=== PATIENT | male | born 1975 | race Caucasian/White ===

== ENCOUNTER 2021-02-25 12:03 | Inpatient (IN) | payer OTHER ==
[2021-02-25 12:43] VITALS: BMI 29.2
[2021-02-25] MEDS ORDERED: NICOTINE 10 MG CARTRIDGE (INHALER) IH PRN (13:27)
[2021-02-25] MEDS ORDERED: MENTHOL/PHENOL 1 EACH UD MM PRN (13:27)
[2021-02-25] MEDS ORDERED: MAGNESIUM HYDROX 2400MG/30ML ORAL SUSPENSION 30 ML CUP PO PRN (13:27)
[2021-02-25] MEDS ORDERED: BISMUTH SUBSALICYLATE 524 MG/30 ML PO PRN (13:27)
[2021-02-25] MEDS ORDERED: MAG HYDROX/AL HYDROX/SIMETH 30 ML UNIT-DOSE CUP PO PRN (13:27)
[2021-02-25] MEDS ORDERED: METHOCARBAMOL 500 MG TABLET PO PRN (13:27)
[2021-02-25] MEDS ORDERED: ACETAMINOPHEN 325 MG TABLET (FP) PO PRN ×2 (13:27)
[2021-02-25] MEDS ORDERED: IBUPROFEN 400 MG TABLET (FP) PO PRN (13:27)
[2021-02-25] MEDS ORDERED: MAGNESIUM CITRATE 300 ML BOTTLE PO PRN (13:27)
[2021-02-25] MEDS ORDERED: ONDANSETRON *ODT* 4 MG TABLET SL PRN (13:27)
[2021-02-25] MEDS: hydrOXYzine PAMOATE 25 MG CAPSULE (FP) PO SCH ×3 (15:03→22:34)
[2021-02-25] MEDS: PRENATAL VITAMINS W/ FOLIC ACID TABLET (FP) PO SCH (15:04)
[2021-02-25] MEDS ORDERED: MELATONIN 5 MG TABLETS PO SCH (22:00)
[2021-02-25] MEDS ORDERED: THIAMINE HCL 100 MG TABLET (FP) PO SCH (22:00)
[2021-02-26] MEDS: hydrOXYzine PAMOATE 25 MG CAPSULE (FP) PO SCH ×2 (07:23→10:31)
[2021-02-26 09:25] VITALS: TEMP 96.9
[2021-02-26] MEDS ORDERED: hydrOXYzine PAMOATE 25 MG CAPSULE (FP) PO PRN (10:22)
[2021-02-26] MEDS: PRENATAL VITAMINS W/ FOLIC ACID TABLET (FP) PO SCH (10:30)
[2021-02-26 12:14] LABS: HEMATOCRIT 40.6 % (35.4-49); HEMOGLOBIN 13.9 GM/dL (11.7-16.9); MCH 33.8 pg (25.7-33.7); MCHC 34.1 g/dl (32.0-35.9); MEAN PLT VOLUME 8.3 fl (7.5-11.1); PLATELET COUNT 258 10^3/uL (134-434); RDW 13.3 % (11.9-15.9); WHITE BLOOD COUNT 6.6 K/mm3 (4.0-10.0)
[2021-02-26 12:21] LABS: CALCIUM 9.1 mg/dL (8.5-10.1)
[2021-02-26 12:22] LABS: ALBUMIN 3.2 g/dl (3.4-5.0); BLOOD UREA NITROGEN 23.9 mg/dL (7-18)
[2021-02-26 12:26] LABS: BILIRUBIN,TOTAL 0.4 mg/dL (0.2-1); TOT PROT 6.9 g/dl (6.4-8.2)
[2021-02-26 13:30] VITALS: BP 122/70; PULSE 79
[2021-02-26 16:00] LABS: HIV INTERPRETATION NEGATIVE (NEGATIVE)
== END 2021-02-26 14:02 | disposition other institution (70) | DRG 774 ==
LOC: YASAS 12:03 → UNDOADMIN 13:08 → Y3N 13:08 → UNDODISIN 02-26 14:02
PROVIDERS: ADMIT Allergy & Immunology; ATTEND Allergy & Immunology
PROC: HZ2ZZZZ Detoxification Services for Substance Abuse Treatment (ICD-10-PCS; principal; 2021-02-25)
DX: F10.230 Alcohol dependence with withdrawal, uncomplicated (principal); F14.20 Cocaine dependence, uncomplicated; F17.210 Nicotine dependence, cigarettes, uncomplicated; Z59.01 Sheltered homelessness; Z56.0 Unemployment, unspecified
CPT/HCPCS: 36415; 80053; 85027; 86780; 87389; C9803; U0003; U0005

== ENCOUNTER 2021-02-26 14:37 | Inpatient (IN) | payer OTHER ==
[2021-02-26] MEDS ORDERED: LOPERAMIDE HCL 2 MG CAPSULE PO PRN (15:01)
[2021-02-26] MEDS ORDERED: MAGNESIUM CITRATE 300 ML BOTTLE PO PRN (15:01)
[2021-02-26] MEDS ORDERED: P-EPHED 60MG/TRIPROLIDI 2.5MG TABLET PO PRN (15:01)
[2021-02-26] MEDS ORDERED: MENTHOL/PHENOL 1 EACH UD MM PRN (15:01)
[2021-02-26] MEDS ORDERED: guaiFENesin 200 MG/10 ML 10 ML UNIT-DOSE CUPS PO PRN (15:01)
[2021-02-26] MEDS ORDERED: MAGNESIUM HYDROX 2400MG/30ML ORAL SUSPENSION 30 ML CUP PO PRN (15:01)
[2021-02-26] MEDS ORDERED: MAG HYDROX/AL HYDROX/SIMETH 30 ML UNIT-DOSE CUP PO PRN (15:01)
[2021-02-26] MEDS ORDERED: IBUPROFEN 400 MG TABLET (FP) PO PRN (15:01)
[2021-02-26] MEDS: THIAMINE HCL 100 MG TABLET (FP) PO SCH (21:26)
[2021-02-26] MEDS: MELATONIN 5 MG TABLETS PO SCH (21:26)
[2021-02-27] MEDS: PRENATAL VITAMINS W/ FOLIC ACID TABLET (FP) PO SCH (10:11)
[2021-02-27] MEDS: THIAMINE HCL 100 MG TABLET (FP) PO SCH (21:18)
[2021-02-27] MEDS: MELATONIN 5 MG TABLETS PO SCH (21:18)
[2021-02-28] MEDS: PRENATAL VITAMINS W/ FOLIC ACID TABLET (FP) PO SCH (09:32)
[2021-02-28] MEDS: hydrOXYzine PAMOATE 25 MG CAPSULE (FP) PO PRN ×2 (09:32→21:27)
[2021-02-28] MEDS: THIAMINE HCL 100 MG TABLET (FP) PO SCH (21:27)
[2021-02-28] MEDS: MELATONIN 5 MG TABLETS PO SCH (21:27)
[2021-03-01] MEDS: PRENATAL VITAMINS W/ FOLIC ACID TABLET (FP) PO SCH (10:02)
[2021-03-01] MEDS: hydrOXYzine PAMOATE 25 MG CAPSULE (FP) PO PRN (21:09)
[2021-03-01] MEDS: THIAMINE HCL 100 MG TABLET (FP) PO SCH (21:09)
[2021-03-01] MEDS: MELATONIN 5 MG TABLETS PO SCH (21:09)
[2021-03-02] MEDS: PRENATAL VITAMINS W/ FOLIC ACID TABLET (FP) PO SCH (10:10)
[2021-03-02] MEDS: hydrOXYzine PAMOATE 25 MG CAPSULE (FP) PO PRN (19:49)
[2021-03-02] MEDS: SUVOREXANT 10 MG TABLET PO PRN (21:06)
[2021-03-02] MEDS: THIAMINE HCL 100 MG TABLET (FP) PO SCH (21:06)
[2021-03-03] MEDS: PRENATAL VITAMINS W/ FOLIC ACID TABLET (FP) PO SCH (10:03)
[2021-03-03] MEDS: hydrOXYzine PAMOATE 25 MG CAPSULE (FP) PO PRN (18:03)
[2021-03-03] MEDS: SUVOREXANT 10 MG TABLET PO PRN (21:10)
[2021-03-03] MEDS: THIAMINE HCL 100 MG TABLET (FP) PO SCH (21:10)
[2021-03-04] MEDS: PRENATAL VITAMINS W/ FOLIC ACID TABLET (FP) PO SCH (10:08)
[2021-03-04] MEDS: hydrOXYzine PAMOATE 25 MG CAPSULE (FP) PO PRN ×2 (10:08→21:36)
[2021-03-04] MEDS: THIAMINE HCL 100 MG TABLET (FP) PO SCH (21:36)
[2021-03-04] MEDS: SUVOREXANT 10 MG TABLET PO PRN (21:36)
[2021-03-05] MEDS: PRENATAL VITAMINS W/ FOLIC ACID TABLET (FP) PO SCH (10:32)
[2021-03-05] MEDS: hydrOXYzine PAMOATE 25 MG CAPSULE (FP) PO PRN ×2 (13:57→21:04)
[2021-03-05] MEDS: THIAMINE HCL 100 MG TABLET (FP) PO SCH (21:04)
[2021-03-05] MEDS: SUVOREXANT 10 MG TABLET PO PRN (21:05)
[2021-03-05] MEDS ORDERED: SUVOREXANT 10 MG TABLET PO PRN (22:00)
[2021-03-06] MEDS: PRENATAL VITAMINS W/ FOLIC ACID TABLET (FP) PO SCH (10:11)
[2021-03-06] MEDS: hydrOXYzine PAMOATE 25 MG CAPSULE (FP) PO PRN (18:41)
[2021-03-06] MEDS: SUVOREXANT 10 MG TABLET PO PRN (21:50)
[2021-03-06] MEDS: THIAMINE HCL 100 MG TABLET (FP) PO SCH (21:50)
[2021-03-07] MEDS: hydrOXYzine PAMOATE 25 MG CAPSULE (FP) PO PRN ×3 (09:50→21:16)
[2021-03-07] MEDS: PRENATAL VITAMINS W/ FOLIC ACID TABLET (FP) PO SCH (09:50)
[2021-03-07] MEDS: ACETAMINOPHEN 325 MG TABLET (FP) PO PRN (19:27)
[2021-03-07] MEDS: THIAMINE HCL 100 MG TABLET (FP) PO SCH (21:15)
[2021-03-07] MEDS: SUVOREXANT 10 MG TABLET PO PRN (21:16)
[2021-03-08] MEDS: PRENATAL VITAMINS W/ FOLIC ACID TABLET (FP) PO SCH (09:58)
[2021-03-08] MEDS: hydrOXYzine PAMOATE 25 MG CAPSULE (FP) PO PRN ×2 (09:58→15:14)
[2021-03-08] MEDS: ACETAMINOPHEN 325 MG TABLET (FP) PO PRN (15:15)
[2021-03-08] MEDS: SUVOREXANT 10 MG TABLET PO PRN (21:34)
[2021-03-08] MEDS: THIAMINE HCL 100 MG TABLET (FP) PO SCH (21:34)
[2021-03-09] MEDS: hydrOXYzine PAMOATE 25 MG CAPSULE (FP) PO PRN ×2 (10:02→21:12)
[2021-03-09] MEDS: PRENATAL VITAMINS W/ FOLIC ACID TABLET (FP) PO SCH (10:02)
[2021-03-09] MEDS: SUVOREXANT 10 MG TABLET PO PRN (21:11)
[2021-03-09] MEDS: ACETAMINOPHEN 325 MG TABLET (FP) PO PRN (21:12)
[2021-03-09] MEDS: THIAMINE HCL 100 MG TABLET (FP) PO SCH (21:12)
[2021-03-10] MEDS: ACETAMINOPHEN 325 MG TABLET (FP) PO PRN ×2 (10:10→21:22)
[2021-03-10] MEDS: hydrOXYzine PAMOATE 25 MG CAPSULE (FP) PO PRN ×2 (10:10→18:41)
[2021-03-10] MEDS: PRENATAL VITAMINS W/ FOLIC ACID TABLET (FP) PO SCH (10:10)
[2021-03-10] MEDS: THIAMINE HCL 100 MG TABLET (FP) PO SCH (21:21)
[2021-03-10] MEDS: SUVOREXANT 10 MG TABLET PO PRN (21:22)
[2021-03-11 07:01] VITALS: BP 124/84; PULSE 55; TEMP 96.9
[2021-03-11] MEDS: PRENATAL VITAMINS W/ FOLIC ACID TABLET (FP) PO SCH (09:10)
== END 2021-03-11 09:57 | disposition home or self-care (01) | DRG 772 ==
LOC: YASAS 14:37 → Y3W 14:38
PROVIDERS: ADMIT Allergy & Immunology; ATTEND Allergy & Immunology
PROC: HZ42ZZZ Group Counseling for Substance Abuse Treatment, Cognitive-Behavioral (ICD-10-PCS; principal; 2021-02-26)
DX: F10.20 Alcohol dependence, uncomplicated (principal); F14.20 Cocaine dependence, uncomplicated; F17.210 Nicotine dependence, cigarettes, uncomplicated; F19.282 Other psychoactive substance dependence with psychoactive substance-induced sleep disorder; Z56.0 Unemployment, unspecified; Z59.00 Homelessness unspecified
CPT/HCPCS: C9803; U0003; U0005

== ENCOUNTER 2021-10-07 11:09 | Inpatient (IN) | payer OTHER ==
[2021-10-07 11:30] VITALS: BMI 27.3
[2021-10-07] MEDS ORDERED: MAGNESIUM HYDROX 2400MG/30ML ORAL SUSPENSION 30 ML CUP PO PRN (11:46)
[2021-10-07] MEDS ORDERED: MAG HYDROX/AL HYDROX/SIMETH 30 ML UNIT-DOSE CUP PO PRN (11:46)
[2021-10-07] MEDS ORDERED: DICYCLOMINE HCL 10 MG CAPSULE PO PRN (11:46)
[2021-10-07] MEDS ORDERED: BENZOCAINE/MENTHOL (CHLORASEPTIC ) LOZENGE MM PRN (11:46)
[2021-10-07] MEDS ORDERED: ACETAMINOPHEN 325 MG TABLET (FP) PO PRN ×2 (11:46)
[2021-10-07] MEDS ORDERED: chlordiazePOXIDE HCL 25 MG CAPSULE PO PRN (11:46)
[2021-10-07] MEDS ORDERED: ONDANSETRON *ODT* 4 MG TABLET SL PRN (11:46)
[2021-10-07] MEDS ORDERED: LOPERAMIDE HCL 2 MG CAPSULE PO PRN (11:46)
[2021-10-07] MEDS ORDERED: IBUPROFEN 600 MG TABLET (FP) PO PRN (11:46)
[2021-10-07] MEDS ORDERED: BISMUTH SUBSALICYLATE 262 MG/15 ML BTL PO PRN (11:46)
[2021-10-07] MEDS ORDERED: NICOTINE 10 MG CARTRIDGE (INHALER) IH PRN (11:46)
[2021-10-07] MEDS ORDERED: MAGNESIUM CITRATE 300 ML BOTTLE PO PRN (11:46)
[2021-10-07] MEDS: hydrOXYzine PAMOATE 25 MG CAPSULE (FP) PO SCH ×3 (12:45→22:04)
[2021-10-07] MEDS: NICOTINE 7 MG/24 HOURS TOPICAL PATCH TD SCH (12:48)
[2021-10-07] MEDS: chlordiazePOXIDE HCL 25 MG CAPSULE PO SCH ×2 (17:37→22:03)
[2021-10-07] MEDS: THIAMINE HCL 100 MG TABLET (FP) PO SCH (22:03)
[2021-10-07] MEDS: MELATONIN 5 MG TABLETS PO SCH (22:04)
[2021-10-08] MEDS: chlordiazePOXIDE HCL 25 MG CAPSULE PO SCH ×2 (05:24→10:37)
[2021-10-08] MEDS: hydrOXYzine PAMOATE 25 MG CAPSULE (FP) PO SCH ×5 (05:24→22:35)
[2021-10-08 10:14] LABS: HEMATOCRIT 41.7 % (35.4-49); HEMOGLOBIN 13.9 GM/dL (11.7-16.9); MCH 33.9 pg (25.7-33.7); MCHC 33.2 g/dl (32.0-35.9); MEAN CELL VOLUME 102.1 fl (80-96); MEAN PLT VOLUME 8.9 fl (7.5-11.1); PLATELET COUNT 248 10^3/uL (134-434); RBC 4.09 M/mm3 (4.00-5.60); WHITE BLOOD COUNT 5.5 K/mm3 (4.0-10.0)
[2021-10-08 10:28] LABS: CALCIUM 9.8 mg/dL (8.5-10.1)
[2021-10-08 10:29] LABS: ALBUMIN 4.1 g/dl (3.4-5.0); BLOOD UREA NITROGEN 16.1 mg/dL (7-18)
[2021-10-08 10:32] LABS: CREATININE 1.1 mg/dL (0.55-1.3)
[2021-10-08 10:34] LABS: BILIRUBIN,TOTAL 1.7 mg/dL (0.2-1)
[2021-10-08] MEDS: PRENATAL VITAMINS W/ FOLIC ACID TABLET (FP) PO SCH (10:37)
[2021-10-08] MEDS: NICOTINE 7 MG/24 HOURS TOPICAL PATCH TD SCH (10:39)
[2021-10-08] MEDS: chlordiazePOXIDE HCL 10 MG CAPSULE PO SCH ×2 (11:08→17:20)
[2021-10-08] MEDS: MELATONIN 5 MG TABLETS PO SCH (22:35)
[2021-10-08] MEDS: THIAMINE HCL 100 MG TABLET (FP) PO SCH (22:35)
[2021-10-09] MEDS: hydrOXYzine PAMOATE 25 MG CAPSULE (FP) PO SCH ×5 (05:46→22:23)
[2021-10-09] MEDS: chlordiazePOXIDE HCL 25 MG CAPSULE PO SCH ×4 (05:46→22:23)
[2021-10-09] MEDS: PRENATAL VITAMINS W/ FOLIC ACID TABLET (FP) PO SCH (10:29)
[2021-10-09] MEDS: METHOCARBAMOL 500 MG TABLET PO PRN ×2 (10:29→18:00)
[2021-10-09] MEDS: NICOTINE 7 MG/24 HOURS TOPICAL PATCH TD SCH (10:30)
[2021-10-09] MEDS: THIAMINE HCL 100 MG TABLET (FP) PO SCH (22:23)
[2021-10-09] MEDS: MELATONIN 5 MG TABLETS PO SCH (22:23)
[2021-10-10] MEDS ORDERED: chlordiazePOXIDE HCL 10 MG CAPSULE PO PRN
[2021-10-10] MEDS: hydrOXYzine PAMOATE 25 MG CAPSULE (FP) PO SCH ×5 (07:01→22:22)
[2021-10-10] MEDS: chlordiazePOXIDE HCL 10 MG CAPSULE PO SCH ×4 (07:02→22:22)
[2021-10-10] MEDS: PRENATAL VITAMINS W/ FOLIC ACID TABLET (FP) PO SCH (10:51)
[2021-10-10] MEDS: NICOTINE 7 MG/24 HOURS TOPICAL PATCH TD SCH (10:51)
[2021-10-10] MEDS: METHOCARBAMOL 500 MG TABLET PO PRN (10:54)
[2021-10-10] MEDS: MELATONIN 5 MG TABLETS PO SCH (22:21)
[2021-10-10] MEDS: THIAMINE HCL 100 MG TABLET (FP) PO SCH (22:22)
[2021-10-11] MEDS: chlordiazePOXIDE HCL 10 MG CAPSULE PO SCH ×2 (06:24→18:14)
[2021-10-11] MEDS: hydrOXYzine PAMOATE 25 MG CAPSULE (FP) PO SCH ×5 (06:25→22:29)
[2021-10-11] MEDS: PRENATAL VITAMINS W/ FOLIC ACID TABLET (FP) PO SCH (11:00)
[2021-10-11] MEDS: NICOTINE 7 MG/24 HOURS TOPICAL PATCH TD SCH (11:01)
[2021-10-11] MEDS: IBUPROFEN 400 MG TABLET (FP) PO PRN (18:16)
[2021-10-11] MEDS: THIAMINE HCL 100 MG TABLET (FP) PO SCH (22:29)
[2021-10-11] MEDS: MELATONIN 5 MG TABLETS PO SCH (22:29)
[2021-10-12] MEDS ORDERED: chlordiazePOXIDE HCL 10 MG CAPSULE PO ONE (05:00)
[2021-10-12] MEDS: IBUPROFEN 400 MG TABLET (FP) PO PRN ×2 (06:15→17:55)
[2021-10-12] MEDS: hydrOXYzine PAMOATE 25 MG CAPSULE (FP) PO SCH ×5 (06:15→22:06)
[2021-10-12] MEDS: PRENATAL VITAMINS W/ FOLIC ACID TABLET (FP) PO SCH (10:23)
[2021-10-12] MEDS: METHOCARBAMOL 500 MG TABLET PO PRN (10:25)
[2021-10-12] MEDS: NICOTINE 7 MG/24 HOURS TOPICAL PATCH TD SCH (10:25)
[2021-10-12] MEDS ORDERED: DOXYCYCLINE HYCLATE 100 MG TABLET PO ONE (11:15)
[2021-10-12] MEDS: BACITRACIN 0.9 GM PACKET TP SCH ×2 (11:40→22:06)
[2021-10-12] MEDS: DOXYCYCLINE HYCLATE 100 MG TABLET PO SCH (17:54)
[2021-10-12] MEDS: MELATONIN 5 MG TABLETS PO SCH (22:06)
[2021-10-12] MEDS: THIAMINE HCL 100 MG TABLET (FP) PO SCH (22:06)
[2021-10-13] MEDS: hydrOXYzine PAMOATE 25 MG CAPSULE (FP) PO SCH ×2 (05:59→10:37)
[2021-10-13 09:39] VITALS: BP 100/57; PULSE 65; TEMP 97.8
[2021-10-13] MEDS: PRENATAL VITAMINS W/ FOLIC ACID TABLET (FP) PO SCH (10:37)
[2021-10-13] MEDS: DOXYCYCLINE HYCLATE 100 MG TABLET PO SCH (10:37)
[2021-10-13] MEDS: NICOTINE 7 MG/24 HOURS TOPICAL PATCH TD SCH (10:37)
[2021-10-13] MEDS: BACITRACIN 0.9 GM PACKET TP SCH (10:37)
== END 2021-10-13 13:33 | disposition other institution (70) | DRG 774 ==
LOC: YASAS 11:09 → Y6N 12:17
PROVIDERS: ADMIT Allergy & Immunology; ATTEND Surgery
PROC: HZ2ZZZZ Detoxification Services for Substance Abuse Treatment (ICD-10-PCS; principal; 2021-10-07)
DX: F10.230 Alcohol dependence with withdrawal, uncomplicated (principal); F14.20 Cocaine dependence, uncomplicated; F17.210 Nicotine dependence, cigarettes, uncomplicated; F19.282 Other psychoactive substance dependence with psychoactive substance-induced sleep disorder; B99.9 Unspecified infectious disease; R36.9 Urethral discharge, unspecified; Z59.00 Homelessness unspecified
CPT/HCPCS: 36415; 80053; 85027; 86780; 87070; 87077; 87205; 87811; C9803-CS; U0003; U0005

== ENCOUNTER 2021-10-13 14:24 | Inpatient (IN) | payer OTHER ==
[~2021-10-13 14:24] MED LIST: ACETAMINOPHEN 325 MG TABLET (FP) PO PRN; IBUPROFEN 400 MG TABLET (FP) PO PRN; LOPERAMIDE HCL 2 MG CAPSULE PO PRN; MAG HYDROX/AL HYDROX/SIMETH 30 ML UNIT-DOSE CUP PO PRN; MAGNESIUM CITRATE 300 ML BOTTLE PO PRN; MAGNESIUM HYDROX 2400MG/30ML ORAL SUSPENSION 30 ML CUP PO PRN; MELATONIN 5 MG TABLETS PO SCH; NICOTINE 10 MG CARTRIDGE (INHALER) IH PRN; NICOTINE 7 MG/24 HOURS TOPICAL PATCH TD SCH; NICOTINE POLACRILEX 2 MG GUM BUC PRN; P-EPHED 60MG/TRIPROLIDI 2.5MG TABLET PO PRN; PRENATAL VITAMINS W/ FOLIC ACID TABLET (FP) PO SCH; THIAMINE HCL 100 MG TABLET (FP) PO SCH; guaiFENesin 200 MG/10 ML 10 ML UNIT-DOSE CUPS PO PRN; hydrOXYzine PAMOATE 25 MG CAPSULE (FP) PO PRN; valACYclovir HCL 500 MG TABLET (FP) PO ONE
[2021-10-13] MEDS: BACITRACIN 0.9 GM PACKET TP SCH ×3 (16:13→21:06)
[2021-10-13] MEDS: IBUPROFEN 400 MG TABLET (FP) PO PRN (16:16)
[2021-10-13] MEDS: DOXYCYCLINE HYCLATE 100 MG TABLET PO SCH ×2 (16:27→17:08)
[2021-10-13] MEDS: MELATONIN 5 MG TABLETS PO SCH (21:05)
[2021-10-13] MEDS: valACYclovir HCL 500 MG TABLET (FP) PO SCH (21:06)
[2021-10-13] MEDS: THIAMINE HCL 100 MG TABLET (FP) PO SCH (21:06)
[2021-10-14] MEDS: BACITRACIN 0.9 GM PACKET TP SCH ×2 (10:20→21:11)
[2021-10-14] MEDS: DOXYCYCLINE HYCLATE 100 MG TABLET PO SCH ×2 (10:21→18:22)
[2021-10-14] MEDS: valACYclovir HCL 500 MG TABLET (FP) PO SCH ×2 (10:21→21:12)
[2021-10-14] MEDS: PRENATAL VITAMINS W/ FOLIC ACID TABLET (FP) PO SCH (10:21)
[2021-10-14] MEDS: IBUPROFEN 400 MG TABLET (FP) PO PRN (10:22)
[2021-10-14] MEDS: NICOTINE 7 MG/24 HOURS TOPICAL PATCH TD SCH (10:23)
[2021-10-14] MEDS: MELATONIN 5 MG TABLETS PO SCH (21:11)
[2021-10-14] MEDS: THIAMINE HCL 100 MG TABLET (FP) PO SCH (21:11)
[2021-10-15] MEDS: MAGNESIUM HYDROX 2400MG/30ML ORAL SUSPENSION 30 ML CUP PO PRN (08:51)
[2021-10-15] MEDS: PRENATAL VITAMINS W/ FOLIC ACID TABLET (FP) PO SCH (10:34)
[2021-10-15] MEDS: valACYclovir HCL 500 MG TABLET (FP) PO SCH ×2 (10:34→21:25)
[2021-10-15] MEDS: DOXYCYCLINE HYCLATE 100 MG TABLET PO SCH ×3 (10:34→18:44)
[2021-10-15] MEDS: BACITRACIN 0.9 GM PACKET TP SCH ×4 (10:34→21:26)
[2021-10-15] MEDS: IBUPROFEN 400 MG TABLET (FP) PO PRN (10:35)
[2021-10-15] MEDS: NICOTINE 7 MG/24 HOURS TOPICAL PATCH TD SCH (11:20)
[2021-10-15] MEDS: MELATONIN 5 MG TABLETS PO SCH (21:25)
[2021-10-15] MEDS: hydrOXYzine PAMOATE 25 MG CAPSULE (FP) PO PRN (21:25)
[2021-10-15] MEDS: THIAMINE HCL 100 MG TABLET (FP) PO SCH (21:25)
[2021-10-16] MEDS: DOXYCYCLINE HYCLATE 100 MG TABLET PO SCH ×2 (10:38→19:00)
[2021-10-16] MEDS: PRENATAL VITAMINS W/ FOLIC ACID TABLET (FP) PO SCH (10:38)
[2021-10-16] MEDS: BACITRACIN 0.9 GM PACKET TP SCH ×2 (10:38→21:43)
[2021-10-16] MEDS: NICOTINE 7 MG/24 HOURS TOPICAL PATCH TD SCH (10:38)
[2021-10-16] MEDS: valACYclovir HCL 500 MG TABLET (FP) PO SCH ×2 (10:38→21:10)
[2021-10-16] MEDS: THIAMINE HCL 100 MG TABLET (FP) PO SCH (21:10)
[2021-10-16] MEDS: hydrOXYzine PAMOATE 25 MG CAPSULE (FP) PO PRN (21:10)
[2021-10-16] MEDS: MELATONIN 5 MG TABLETS PO SCH (21:10)
[2021-10-17] MEDS: DOXYCYCLINE HYCLATE 100 MG TABLET PO SCH ×2 (10:34→17:49)
[2021-10-17] MEDS: NICOTINE 7 MG/24 HOURS TOPICAL PATCH TD SCH (10:34)
[2021-10-17] MEDS: PRENATAL VITAMINS W/ FOLIC ACID TABLET (FP) PO SCH (10:34)
[2021-10-17] MEDS: BACITRACIN 0.9 GM PACKET TP SCH ×2 (10:34→21:07)
[2021-10-17] MEDS: valACYclovir HCL 500 MG TABLET (FP) PO SCH ×2 (10:35→21:08)
[2021-10-17] MEDS: MELATONIN 5 MG TABLETS PO SCH (21:08)
[2021-10-17] MEDS: THIAMINE HCL 100 MG TABLET (FP) PO SCH (21:08)
[2021-10-18] MEDS: NICOTINE 7 MG/24 HOURS TOPICAL PATCH TD SCH (10:23)
[2021-10-18] MEDS: valACYclovir HCL 500 MG TABLET (FP) PO SCH ×2 (10:23→21:02)
[2021-10-18] MEDS: BACITRACIN 0.9 GM PACKET TP SCH ×2 (10:23→21:02)
[2021-10-18] MEDS: DOXYCYCLINE HYCLATE 100 MG TABLET PO SCH ×2 (10:23→17:03)
[2021-10-18] MEDS: PRENATAL VITAMINS W/ FOLIC ACID TABLET (FP) PO SCH (10:23)
[2021-10-18] MEDS: MELATONIN 5 MG TABLETS PO SCH (21:02)
[2021-10-18] MEDS: hydrOXYzine PAMOATE 25 MG CAPSULE (FP) PO PRN (21:02)
[2021-10-18] MEDS: THIAMINE HCL 100 MG TABLET (FP) PO SCH (21:53)
[2021-10-19] MEDS: valACYclovir HCL 500 MG TABLET (FP) PO SCH ×2 (09:51→21:17)
[2021-10-19] MEDS: DOXYCYCLINE HYCLATE 100 MG TABLET PO SCH ×2 (09:51→17:09)
[2021-10-19] MEDS: NICOTINE 7 MG/24 HOURS TOPICAL PATCH TD SCH (09:52)
[2021-10-19] MEDS: BACITRACIN 0.9 GM PACKET TP SCH ×2 (09:52→21:17)
[2021-10-19] MEDS: PRENATAL VITAMINS W/ FOLIC ACID TABLET (FP) PO SCH (09:53)
[2021-10-19] MEDS: THIAMINE HCL 100 MG TABLET (FP) PO SCH (21:17)
[2021-10-19] MEDS: SUVOREXANT 10 MG TABLET PO PRN (21:17)
[2021-10-19] MEDS: MELATONIN 5 MG TABLETS PO SCH (21:17)
[2021-10-20] MEDS: valACYclovir HCL 500 MG TABLET (FP) PO SCH ×2 (10:06→21:12)
[2021-10-20] MEDS: DOXYCYCLINE HYCLATE 100 MG TABLET PO SCH (10:06)
[2021-10-20] MEDS: BACITRACIN 0.9 GM PACKET TP SCH ×2 (10:06→21:12)
[2021-10-20] MEDS: NICOTINE 7 MG/24 HOURS TOPICAL PATCH TD SCH (10:06)
[2021-10-20] MEDS: PRENATAL VITAMINS W/ FOLIC ACID TABLET (FP) PO SCH (10:07)
[2021-10-20] MEDS: IBUPROFEN 400 MG TABLET (FP) PO PRN (10:08)
[2021-10-20] MEDS: MELATONIN 5 MG TABLETS PO SCH (21:12)
[2021-10-20] MEDS: hydrOXYzine PAMOATE 25 MG CAPSULE (FP) PO PRN (21:12)
[2021-10-20] MEDS: SUVOREXANT 10 MG TABLET PO PRN (21:13)
[2021-10-20] MEDS: THIAMINE HCL 100 MG TABLET (FP) PO SCH (21:14)
[2021-10-21] MEDS: BACITRACIN 0.9 GM PACKET TP SCH ×2 (10:19→21:02)
[2021-10-21] MEDS: NICOTINE 7 MG/24 HOURS TOPICAL PATCH TD SCH (10:19)
[2021-10-21] MEDS: PRENATAL VITAMINS W/ FOLIC ACID TABLET (FP) PO SCH (10:19)
[2021-10-21] MEDS: valACYclovir HCL 500 MG TABLET (FP) PO SCH ×2 (10:20→21:02)
[2021-10-21 12:41] LABS: HIV INTERPRETATION NEGATIVE (NEGATIVE)
[2021-10-21] MEDS: IBUPROFEN 400 MG TABLET (FP) PO PRN (16:59)
[2021-10-21] MEDS: MELATONIN 5 MG TABLETS PO SCH (21:02)
[2021-10-21] MEDS: THIAMINE HCL 100 MG TABLET (FP) PO SCH (21:03)
[2021-10-21] MEDS: SUVOREXANT 10 MG TABLET PO PRN (21:03)
[2021-10-22] MEDS: BACITRACIN 0.9 GM PACKET TP SCH ×2 (10:07→21:24)
[2021-10-22] MEDS: PRENATAL VITAMINS W/ FOLIC ACID TABLET (FP) PO SCH (10:08)
[2021-10-22] MEDS: NICOTINE 7 MG/24 HOURS TOPICAL PATCH TD SCH (10:08)
[2021-10-22] MEDS: valACYclovir HCL 500 MG TABLET (FP) PO SCH ×2 (10:08→21:24)
[2021-10-22] MEDS: IBUPROFEN 400 MG TABLET (FP) PO PRN (13:21)
[2021-10-22] MEDS: MAGNESIUM HYDROX 2400MG/30ML ORAL SUSPENSION 30 ML CUP PO PRN (13:21)
[2021-10-22] MEDS: MELATONIN 5 MG TABLETS PO SCH (21:24)
[2021-10-22] MEDS: THIAMINE HCL 100 MG TABLET (FP) PO SCH (21:25)
[2021-10-22] MEDS: SUVOREXANT 10 MG TABLET PO PRN (21:26)
[2021-10-23] MEDS: BACITRACIN 0.9 GM PACKET TP SCH ×2 (09:25→21:32)
[2021-10-23] MEDS: valACYclovir HCL 500 MG TABLET (FP) PO SCH ×2 (09:25→21:32)
[2021-10-23] MEDS: NICOTINE 7 MG/24 HOURS TOPICAL PATCH TD SCH (09:25)
[2021-10-23] MEDS: PRENATAL VITAMINS W/ FOLIC ACID TABLET (FP) PO SCH (09:25)
[2021-10-23] MEDS: MAGNESIUM HYDROX 2400MG/30ML ORAL SUSPENSION 30 ML CUP PO PRN (16:57)
[2021-10-23] MEDS: MELATONIN 5 MG TABLETS PO SCH (21:32)
[2021-10-23] MEDS: THIAMINE HCL 100 MG TABLET (FP) PO SCH (21:33)
[2021-10-23] MEDS: SUVOREXANT 10 MG TABLET PO PRN (21:33)
[2021-10-24] MEDS: valACYclovir HCL 500 MG TABLET (FP) PO SCH ×2 (10:07→21:25)
[2021-10-24] MEDS: BACITRACIN 0.9 GM PACKET TP SCH ×2 (10:07→21:26)
[2021-10-24] MEDS: PRENATAL VITAMINS W/ FOLIC ACID TABLET (FP) PO SCH (10:07)
[2021-10-24] MEDS: NICOTINE 7 MG/24 HOURS TOPICAL PATCH TD SCH (10:08)
[2021-10-24] MEDS: SUVOREXANT 10 MG TABLET PO PRN (21:26)
[2021-10-24] MEDS: MELATONIN 5 MG TABLETS PO SCH (21:26)
[2021-10-24] MEDS: THIAMINE HCL 100 MG TABLET (FP) PO SCH (22:12)
[2021-10-25] MEDS: BACITRACIN 0.9 GM PACKET TP SCH ×2 (10:25→21:12)
[2021-10-25] MEDS: NICOTINE 7 MG/24 HOURS TOPICAL PATCH TD SCH (10:25)
[2021-10-25] MEDS: valACYclovir HCL 500 MG TABLET (FP) PO SCH ×2 (10:25→21:12)
[2021-10-25] MEDS: PRENATAL VITAMINS W/ FOLIC ACID TABLET (FP) PO SCH (10:25)
[2021-10-25] MEDS: MELATONIN 5 MG TABLETS PO SCH (21:12)
[2021-10-25] MEDS: SUVOREXANT 10 MG TABLET PO PRN (21:12)
[2021-10-25] MEDS: THIAMINE HCL 100 MG TABLET (FP) PO SCH (21:13)
[2021-10-26 07:05] VITALS: BP 131/83; PULSE 61; TEMP 98.4
[2021-10-26] MEDS: BACITRACIN 0.9 GM PACKET TP SCH (09:43)
[2021-10-26] MEDS: valACYclovir HCL 500 MG TABLET (FP) PO SCH (09:43)
[2021-10-26] MEDS: NICOTINE 7 MG/24 HOURS TOPICAL PATCH TD SCH (09:44)
[2021-10-26] MEDS: PRENATAL VITAMINS W/ FOLIC ACID TABLET (FP) PO SCH (09:44)
== END 2021-10-26 09:55 | disposition home or self-care (01) | DRG 772 ==
LOC: YASAS 14:24 → Y3W 14:32
PROVIDERS: ADMIT Allergy & Immunology; ATTEND Psychiatry & Neurology Psychiatry
PROC: HZ42ZZZ Group Counseling for Substance Abuse Treatment, Cognitive-Behavioral (ICD-10-PCS; principal; 2021-10-13)
DX: F10.20 Alcohol dependence, uncomplicated (principal); F14.20 Cocaine dependence, uncomplicated; F17.210 Nicotine dependence, cigarettes, uncomplicated; G47.00 Insomnia, unspecified; N48.1 Balanitis; Z56.0 Unemployment, unspecified; Z59.00 Homelessness unspecified
CPT/HCPCS: 36415; 87389

== ENCOUNTER 2022-06-04 16:40 | Inpatient (IN) | payer OTHER ==
[2022-06-04 17:54] VITALS: BMI 30.8
[2022-06-04] MEDS ORDERED: ACETAMINOPHEN 325 MG TABLET (FP) PO PRN ×2 (18:48)
[2022-06-04] MEDS ORDERED: MAGNESIUM HYDROX 2400MG/30ML ORAL SUSPENSION 30 ML CUP PO PRN (18:48)
[2022-06-04] MEDS ORDERED: ONDANSETRON *ODT* 4 MG TABLET SL PRN (18:48)
[2022-06-04] MEDS ORDERED: POLYETHYLENE GLYCOL (HEALTHYLAX) 3350 17 GM PACKET PO PRN (18:48)
[2022-06-04] MEDS ORDERED: MAG HYDROX/AL HYDROX/SIMETH 30 ML UNIT-DOSE CUP PO PRN (18:48)
[2022-06-04] MEDS ORDERED: IBUPROFEN 400 MG TABLET (FP) PO PRN (18:48)
[2022-06-04] MEDS ORDERED: BISMUTH SUBSALICYLATE 524 MG/30 ML PO PRN (18:48)
[2022-06-04] MEDS ORDERED: DICYCLOMINE HCL 10 MG CAPSULE PO PRN (18:48)
[2022-06-04] MEDS ORDERED: IBUPROFEN 600 MG TABLET (FP) PO PRN (18:48)
[2022-06-04] MEDS ORDERED: LOPERAMIDE HCL 2 MG CAPSULE PO PRN (18:48)
[2022-06-04] MEDS ORDERED: guaiFENesin 200 MG/10 ML 10 ML UNIT-DOSE CUPS PO PRN (18:48)
[2022-06-04] MEDS ORDERED: P-EPHED 60MG/TRIPROLIDI 2.5MG TABLET PO PRN (18:48)
[2022-06-04] MEDS ORDERED: BENZOCAINE/MENTHOL (CHLORASEPTIC ) LOZENGE MM PRN (18:48)
[2022-06-04] MEDS ORDERED: diazePAM 5 MG TABLET PO PRN (18:50)
[2022-06-04] MEDS: diazePAM 5 MG TABLET PO SCH (23:24)
[2022-06-04] MEDS: THIAMINE HCL 100 MG TABLET (FP) PO SCH (23:24)
[2022-06-05] MEDS: diazePAM 5 MG TABLET PO SCH ×4 (05:28→22:24)
[2022-06-05] MEDS: PRENATAL VITAMINS W/ FOLIC ACID TABLET (FP) PO SCH (10:36)
[2022-06-05] MEDS: METHOCARBAMOL 500 MG TABLET PO PRN ×2 (10:37→22:25)
[2022-06-05] MEDS: hydrOXYzine PAMOATE 25 MG CAPSULE (FP) PO PRN (10:41)
[2022-06-05] MEDS: THIAMINE HCL 100 MG TABLET (FP) PO SCH (22:25)
[2022-06-05] MEDS: MELATONIN 5 MG TABLETS PO PRN (22:25)
[2022-06-06] MEDS: diazePAM 5 MG TABLET PO SCH ×3 (05:10→22:14)
[2022-06-06] MEDS: PRENATAL VITAMINS W/ FOLIC ACID TABLET (FP) PO SCH (10:16)
[2022-06-06] MEDS: MELATONIN 5 MG TABLETS PO PRN (22:14)
[2022-06-06] MEDS: METHOCARBAMOL 500 MG TABLET PO PRN (22:14)
[2022-06-06] MEDS: THIAMINE HCL 100 MG TABLET (FP) PO SCH (22:14)
[2022-06-07] MEDS: diazePAM 5 MG TABLET PO SCH ×2 (05:16→18:04)
[2022-06-07] MEDS: PRENATAL VITAMINS W/ FOLIC ACID TABLET (FP) PO SCH (10:05)
[2022-06-07 14:57] LABS: HEMATOCRIT 39.9 % (35.4-49); HEMOGLOBIN 13.2 GM/dL (11.7-16.9); MCH 32.3 pg (25.7-33.7); MCHC 33.2 g/dl (32.0-35.9); MEAN CELL VOLUME 97.5 fl (80-96); MEAN PLT VOLUME 8.2 fl (7.5-11.1); PLATELET COUNT 237 10^3/uL (134-434); RBC 4.09 M/mm3 (4.00-5.60); RDW 14.6 % (11.9-15.9); WHITE BLOOD COUNT 5.3 K/mm3 (4.0-10.0)
[2022-06-07 15:41] LABS: ALBUMIN 3.4 g/dl (3.4-5.0); BLOOD UREA NITROGEN 21.9 mg/dL (7-18); CALCIUM 8.6 mg/dL (8.5-10.1)
[2022-06-07 15:42] LABS: BILIRUBIN,TOTAL 0.4 mg/dL (0.2-1); TOT PROT 6.6 g/dl (6.4-8.2)
[2022-06-07 15:43] LABS: CREATININE 0.9 mg/dL (0.55-1.3)
[2022-06-07] MEDS: MELATONIN 5 MG TABLETS PO PRN (22:15)
[2022-06-07] MEDS: METHOCARBAMOL 500 MG TABLET PO PRN (22:17)
[2022-06-07] MEDS: hydrOXYzine PAMOATE 25 MG CAPSULE (FP) PO PRN (22:17)
[2022-06-07] MEDS: THIAMINE HCL 100 MG TABLET (FP) PO SCH (22:17)
[2022-06-08] MEDS ORDERED: diazePAM 5 MG TABLET PO ONE (06:00)
[2022-06-08 06:26] VITALS: PULSE 60
[2022-06-08 09:22] VITALS: BP 107/71; RESP 18; TEMP 97.3
[2022-06-08] MEDS: PRENATAL VITAMINS W/ FOLIC ACID TABLET (FP) PO SCH (09:40)
== END 2022-06-08 12:25 | disposition other institution (70) | DRG 774 ==
LOC: YASAS 16:40 → Y6N 22:28
PROVIDERS: ADMIT Allergy & Immunology; ATTEND Family Medicine
PROC: HZ2ZZZZ Detoxification Services for Substance Abuse Treatment (ICD-10-PCS; principal; 2022-06-04)
DX: F10.230 Alcohol dependence with withdrawal, uncomplicated (principal); F14.20 Cocaine dependence, uncomplicated; F17.210 Nicotine dependence, cigarettes, uncomplicated; G47.00 Insomnia, unspecified
CPT/HCPCS: 36415; 80053; 85027; 86780; C9803-CS; U0003; U0005

== ENCOUNTER 2022-06-08 12:31 | Inpatient (IN) | payer OTHER ==
[2022-06-08] MEDS ORDERED: BENZOCAINE/MENTHOL (CHLORASEPTIC ) LOZENGE MM PRN (16:08)
[2022-06-08] MEDS ORDERED: NICOTINE 10 MG CARTRIDGE (INHALER) IH PRN (16:08)
[2022-06-08] MEDS ORDERED: LOPERAMIDE HCL 2 MG CAPSULE PO PRN (16:08)
[2022-06-08] MEDS ORDERED: POLYETHYLENE GLYCOL (HEALTHYLAX) 3350 17 GM PACKET PO PRN (16:08)
[2022-06-08] MEDS ORDERED: NICOTINE 7 MG/24 HOURS TOPICAL PATCH TD PRN (16:08)
[2022-06-08] MEDS ORDERED: MAG HYDROX/AL HYDROX/SIMETH 30 ML UNIT-DOSE CUP PO PRN (16:08)
[2022-06-08] MEDS ORDERED: guaiFENesin 200 MG/10 ML 10 ML UNIT-DOSE CUPS PO PRN (16:08)
[2022-06-08] MEDS ORDERED: P-EPHED 60MG/TRIPROLIDI 2.5MG TABLET PO PRN (16:08)
[2022-06-08] MEDS ORDERED: CYANOCOBALAMIN (VITAMIN B-12) 1000 MCG/1 ML VIAL IM ONE (16:12)
[2022-06-08] MEDS: valACYclovir HCL 500 MG TABLET (FP) PO SCH (16:46)
[2022-06-08] MEDS: MELATONIN 5 MG TABLETS PO SCH (21:22)
[2022-06-08] MEDS: THIAMINE HCL 100 MG TABLET (FP) PO SCH (21:22)
[2022-06-08] MEDS: hydrOXYzine PAMOATE 25 MG CAPSULE (FP) PO PRN (21:23)
[2022-06-09] MEDS: valACYclovir HCL 500 MG TABLET (FP) PO SCH (09:55)
[2022-06-09] MEDS: PRENATAL VITAMINS W/ FOLIC ACID TABLET (FP) PO SCH (09:55)
[2022-06-09 15:23] LABS: PH,URINE 7.5 (5.0-8.0); URINE APPEARANCE CLEAR; URINE BILIRUBIN NEGATIVE (NEGATIVE); URINE COLOR YELLOW; URINE GLUCOSE (UA) NEGATIVE (NEGATIVE); URINE KETONE NEGATIVE (NEGATIVE); URINE LEUK ESTERASE NEGATIVE (NEGATIVE); URINE NITRITE NEGATIVE (NEGATIVE); URINE PROTEIN NEGATIVE (NEGATIVE); URINE UROBILINOGEN 0.2 mg/dL (0.2-1.0)
[2022-06-09] MEDS: MELATONIN 5 MG TABLETS PO SCH (21:04)
[2022-06-09] MEDS: THIAMINE HCL 100 MG TABLET (FP) PO SCH (21:04)
[2022-06-09] MEDS: SUVOREXANT 10 MG TABLET PO PRN (21:05)
[2022-06-10] MEDS: valACYclovir HCL 500 MG TABLET (FP) PO SCH (09:55)
[2022-06-10] MEDS: PRENATAL VITAMINS W/ FOLIC ACID TABLET (FP) PO SCH (09:55)
[2022-06-10] MEDS: MELATONIN 5 MG TABLETS PO SCH (21:23)
[2022-06-10] MEDS: THIAMINE HCL 100 MG TABLET (FP) PO SCH (21:23)
[2022-06-10] MEDS: SUVOREXANT 10 MG TABLET PO PRN (21:23)
[2022-06-10] MEDS: hydrOXYzine PAMOATE 25 MG CAPSULE (FP) PO PRN (21:23)
[2022-06-11] MEDS: valACYclovir HCL 500 MG TABLET (FP) PO SCH (09:52)
[2022-06-11] MEDS: PRENATAL VITAMINS W/ FOLIC ACID TABLET (FP) PO SCH (09:52)
[2022-06-11] MEDS: MAGNESIUM HYDROX 2400MG/30ML ORAL SUSPENSION 30 ML CUP PO PRN (21:12)
[2022-06-11] MEDS: MELATONIN 5 MG TABLETS PO SCH (21:13)
[2022-06-11] MEDS: THIAMINE HCL 100 MG TABLET (FP) PO SCH (21:13)
[2022-06-11] MEDS: SUVOREXANT 10 MG TABLET PO PRN (21:13)
[2022-06-11] MEDS: hydrOXYzine PAMOATE 25 MG CAPSULE (FP) PO PRN (21:13)
[2022-06-12 00:23] LABS: HIV INTERPRETATION NEGATIVE (NEGATIVE)
[2022-06-12] MEDS: valACYclovir HCL 500 MG TABLET (FP) PO SCH (09:54)
[2022-06-12] MEDS: PRENATAL VITAMINS W/ FOLIC ACID TABLET (FP) PO SCH (09:54)
[2022-06-12] MEDS: MELATONIN 5 MG TABLETS PO SCH (21:17)
[2022-06-12] MEDS: hydrOXYzine PAMOATE 25 MG CAPSULE (FP) PO PRN (21:17)
[2022-06-12] MEDS: THIAMINE HCL 100 MG TABLET (FP) PO SCH (21:17)
[2022-06-12] MEDS ORDERED: SUVOREXANT 10 MG TABLET PO PRN (22:00)
[2022-06-13] MEDS: valACYclovir HCL 500 MG TABLET (FP) PO SCH (09:51)
[2022-06-13] MEDS: PRENATAL VITAMINS W/ FOLIC ACID TABLET (FP) PO SCH (09:51)
[2022-06-13] MEDS: THIAMINE HCL 100 MG TABLET (FP) PO SCH (21:50)
[2022-06-13] MEDS: hydrOXYzine PAMOATE 25 MG CAPSULE (FP) PO PRN (21:50)
[2022-06-13] MEDS ORDERED: SUVOREXANT 10 MG TABLET PO PRN (22:00)
[2022-06-13] MEDS: SUVOREXANT 15 MG TABLET PO PRN (22:42)
[2022-06-14] MEDS: PRENATAL VITAMINS W/ FOLIC ACID TABLET (FP) PO SCH (10:21)
[2022-06-14] MEDS: valACYclovir HCL 500 MG TABLET (FP) PO SCH (10:22)
[2022-06-14] MEDS: THIAMINE HCL 100 MG TABLET (FP) PO SCH (21:04)
[2022-06-14] MEDS: SUVOREXANT 15 MG TABLET PO PRN (21:04)
[2022-06-14] MEDS: hydrOXYzine PAMOATE 25 MG CAPSULE (FP) PO PRN (21:05)
[2022-06-15] MEDS: PRENATAL VITAMINS W/ FOLIC ACID TABLET (FP) PO SCH (10:09)
[2022-06-15] MEDS: valACYclovir HCL 500 MG TABLET (FP) PO SCH (10:09)
[2022-06-15] MEDS: ACETAMINOPHEN 325 MG TABLET (FP) PO PRN (18:59)
[2022-06-15] MEDS: THIAMINE HCL 100 MG TABLET (FP) PO SCH (21:11)
[2022-06-15] MEDS: SUVOREXANT 15 MG TABLET PO PRN (21:11)
[2022-06-15] MEDS: hydrOXYzine PAMOATE 25 MG CAPSULE (FP) PO PRN (21:11)
[2022-06-16] MEDS: valACYclovir HCL 500 MG TABLET (FP) PO SCH (09:53)
[2022-06-16] MEDS: IBUPROFEN 400 MG TABLET (FP) PO PRN (09:54)
[2022-06-16] MEDS: THIAMINE HCL 100 MG TABLET (FP) PO SCH (21:07)
[2022-06-16] MEDS: SUVOREXANT 15 MG TABLET PO PRN (21:08)
[2022-06-16] MEDS: hydrOXYzine PAMOATE 25 MG CAPSULE (FP) PO PRN (21:08)
[2022-06-16] MEDS ORDERED: SUVOREXANT 15 MG TABLET PO PRN (22:00)
[2022-06-17] MEDS: valACYclovir HCL 500 MG TABLET (FP) PO SCH (10:00)
[2022-06-17] MEDS: ACETAMINOPHEN 325 MG TABLET (FP) PO PRN ×2 (14:25→19:07)
[2022-06-17] MEDS: SUVOREXANT 15 MG TABLET PO PRN (21:10)
[2022-06-17] MEDS: THIAMINE HCL 100 MG TABLET (FP) PO SCH (21:10)
[2022-06-17] MEDS: hydrOXYzine PAMOATE 25 MG CAPSULE (FP) PO PRN (21:10)
[2022-06-18] MEDS: IBUPROFEN 400 MG TABLET (FP) PO PRN ×2 (06:22→16:58)
[2022-06-18] MEDS: valACYclovir HCL 500 MG TABLET (FP) PO SCH (09:40)
[2022-06-18] MEDS: ACETAMINOPHEN 325 MG TABLET (FP) PO PRN ×2 (14:20→21:07)
[2022-06-18] MEDS: hydrOXYzine PAMOATE 25 MG CAPSULE (FP) PO PRN (21:06)
[2022-06-18] MEDS: THIAMINE HCL 100 MG TABLET (FP) PO SCH (21:06)
[2022-06-18] MEDS: SUVOREXANT 15 MG TABLET PO PRN (21:09)
[2022-06-19] MEDS: IBUPROFEN 400 MG TABLET (FP) PO PRN ×2 (06:54→16:48)
[2022-06-19] MEDS: valACYclovir HCL 500 MG TABLET (FP) PO SCH (09:50)
[2022-06-19] MEDS: ACETAMINOPHEN 325 MG TABLET (FP) PO PRN (09:51)
[2022-06-19] MEDS: THIAMINE HCL 100 MG TABLET (FP) PO SCH (21:15)
[2022-06-19] MEDS: SUVOREXANT 5 MG TABLET PO PRN (21:17)
[2022-06-20] MEDS: IBUPROFEN 400 MG TABLET (FP) PO PRN ×3 (01:58→21:05)
[2022-06-20] MEDS: COLLOIDAL OATMEAL 1 BAR EACH TP PRN (07:06)
[2022-06-20] MEDS: valACYclovir HCL 500 MG TABLET (FP) PO SCH (10:06)
[2022-06-20] MEDS: MAGNESIUM HYDROX 2400MG/30ML ORAL SUSPENSION 30 ML CUP PO PRN (15:39)
[2022-06-20] MEDS: ACETAMINOPHEN 325 MG TABLET (FP) PO PRN (15:39)
[2022-06-20] MEDS: hydrOXYzine PAMOATE 25 MG CAPSULE (FP) PO PRN (21:05)
[2022-06-20] MEDS: THIAMINE HCL 100 MG TABLET (FP) PO SCH (21:05)
[2022-06-20] MEDS: SUVOREXANT 5 MG TABLET PO PRN (21:06)
[2022-06-21] MEDS: IBUPROFEN 400 MG TABLET (FP) PO PRN (06:09)
[2022-06-21] MEDS: valACYclovir HCL 500 MG TABLET (FP) PO SCH (09:46)
[2022-06-21] MEDS: BENZOCAINE 20 % GEL TUBE MM PRN (13:02)
[2022-06-21] MEDS: ACETAMINOPHEN 325 MG TABLET (FP) PO PRN (17:07)
[2022-06-21] MEDS: THIAMINE HCL 100 MG TABLET (FP) PO SCH (21:20)
[2022-06-21] MEDS: SUVOREXANT 5 MG TABLET PO PRN (21:20)
[2022-06-22] MEDS: IBUPROFEN 400 MG TABLET (FP) PO PRN ×2 (06:36→21:41)
[2022-06-22] MEDS: BENZOCAINE 20 % GEL TUBE MM PRN ×2 (09:01→21:44)
[2022-06-22] MEDS: valACYclovir HCL 500 MG TABLET (FP) PO SCH (09:45)
[2022-06-22] MEDS: hydrOXYzine PAMOATE 25 MG CAPSULE (FP) PO PRN (21:40)
[2022-06-22] MEDS: SUVOREXANT 5 MG TABLET PO PRN (21:44)
[2022-06-22] MEDS: THIAMINE HCL 100 MG TABLET (FP) PO SCH (22:00)
[2022-06-23] MEDS: IBUPROFEN 400 MG TABLET (FP) PO PRN (06:27)
[2022-06-23] MEDS: BENZOCAINE 20 % GEL TUBE MM PRN (06:29)
[2022-06-23] MEDS: valACYclovir HCL 500 MG TABLET (FP) PO SCH (10:07)
[2022-06-23] MEDS ORDERED: TUBERCULIN PPD 5 TU/0.1ML VIAL ID ONE (14:46)
[2022-06-23] MEDS: THIAMINE HCL 100 MG TABLET (FP) PO SCH (21:03)
[2022-06-23] MEDS: hydrOXYzine PAMOATE 25 MG CAPSULE (FP) PO PRN (21:04)
[2022-06-24] MEDS: valACYclovir HCL 500 MG TABLET (FP) PO SCH (10:12)
[2022-06-24] MEDS: ACETAMINOPHEN 325 MG TABLET (FP) PO PRN ×2 (10:12→16:16)
[2022-06-24] MEDS: BENZOCAINE 20 % GEL TUBE MM PRN (10:14)
[2022-06-24] MEDS: THIAMINE HCL 100 MG TABLET (FP) PO SCH (21:23)
[2022-06-24] MEDS: SUVOREXANT 15 MG TABLET PO PRN (21:24)
[2022-06-24] MEDS: hydrOXYzine PAMOATE 25 MG CAPSULE (FP) PO PRN (21:24)
[2022-06-25] MEDS: IBUPROFEN 400 MG TABLET (FP) PO PRN ×2 (07:00→21:02)
[2022-06-25] MEDS: valACYclovir HCL 500 MG TABLET (FP) PO SCH (10:00)
[2022-06-25] MEDS: ACETAMINOPHEN 325 MG TABLET (FP) PO PRN (15:45)
[2022-06-25] MEDS: THIAMINE HCL 100 MG TABLET (FP) PO SCH (21:01)
[2022-06-25] MEDS: SUVOREXANT 15 MG TABLET PO PRN (21:03)
[2022-06-25] MEDS: hydrOXYzine PAMOATE 25 MG CAPSULE (FP) PO PRN (21:03)
[2022-06-26] MEDS: valACYclovir HCL 500 MG TABLET (FP) PO SCH (09:40)
[2022-06-26] MEDS: BENZOCAINE 20 % GEL TUBE MM PRN (09:41)
[2022-06-26] MEDS: IBUPROFEN 400 MG TABLET (FP) PO PRN (21:27)
[2022-06-26] MEDS: hydrOXYzine PAMOATE 25 MG CAPSULE (FP) PO PRN (21:28)
[2022-06-26] MEDS: THIAMINE HCL 100 MG TABLET (FP) PO SCH (21:29)
[2022-06-26] MEDS: SUVOREXANT 15 MG TABLET PO PRN (21:29)
[2022-06-27] MEDS: valACYclovir HCL 500 MG TABLET (FP) PO SCH (09:43)
[2022-06-27] MEDS: IBUPROFEN 400 MG TABLET (FP) PO PRN ×2 (09:44→21:41)
[2022-06-27] MEDS: THIAMINE HCL 100 MG TABLET (FP) PO SCH (21:40)
[2022-06-27] MEDS: hydrOXYzine PAMOATE 25 MG CAPSULE (FP) PO PRN (21:40)
[2022-06-27] MEDS: SUVOREXANT 15 MG TABLET PO PRN (21:40)
[2022-06-28] MEDS: COLLOIDAL OATMEAL 1 BAR EACH TP PRN (07:09)
[2022-06-28] MEDS: valACYclovir HCL 500 MG TABLET (FP) PO SCH (10:00)
[2022-06-28] MEDS: BENZOCAINE 20 % GEL TUBE MM PRN (10:00)
[2022-06-28] MEDS: SUVOREXANT 15 MG TABLET PO PRN (21:29)
[2022-06-28] MEDS: THIAMINE HCL 100 MG TABLET (FP) PO SCH (21:29)
[2022-06-28] MEDS: hydrOXYzine PAMOATE 25 MG CAPSULE (FP) PO PRN (21:30)
[2022-06-29] MEDS: valACYclovir HCL 500 MG TABLET (FP) PO SCH (09:34)
[2022-06-29] MEDS: IBUPROFEN 400 MG TABLET (FP) PO PRN ×2 (09:34→21:44)
[2022-06-29] MEDS: SUVOREXANT 15 MG TABLET PO PRN (21:44)
[2022-06-29] MEDS: THIAMINE HCL 100 MG TABLET (FP) PO SCH (21:46)
[2022-06-30] MEDS: IBUPROFEN 400 MG TABLET (FP) PO PRN (09:39)
[2022-06-30] MEDS: valACYclovir HCL 500 MG TABLET (FP) PO SCH (09:39)
[2022-06-30] MEDS: THIAMINE HCL 100 MG TABLET (FP) PO SCH (21:24)
[2022-06-30] MEDS: hydrOXYzine PAMOATE 25 MG CAPSULE (FP) PO PRN (21:24)
[2022-06-30] MEDS: SUVOREXANT 15 MG TABLET PO PRN (21:25)
[2022-07-01] MEDS: valACYclovir HCL 500 MG TABLET (FP) PO SCH (09:47)
[2022-07-01] MEDS: THIAMINE HCL 100 MG TABLET (FP) PO SCH (21:29)
[2022-07-01] MEDS: hydrOXYzine PAMOATE 25 MG CAPSULE (FP) PO PRN (21:30)
[2022-07-01] MEDS: SUVOREXANT 15 MG TABLET PO PRN (21:30)
[2022-07-02] MEDS: valACYclovir HCL 500 MG TABLET (FP) PO SCH (09:58)
[2022-07-02] MEDS: THIAMINE HCL 100 MG TABLET (FP) PO SCH (21:25)
[2022-07-02] MEDS: hydrOXYzine PAMOATE 25 MG CAPSULE (FP) PO PRN (21:26)
[2022-07-02] MEDS: SUVOREXANT 15 MG TABLET PO PRN (21:26)
[2022-07-03] MEDS: valACYclovir HCL 500 MG TABLET (FP) PO SCH (10:05)
[2022-07-03] MEDS: hydrOXYzine PAMOATE 25 MG CAPSULE (FP) PO PRN (21:06)
[2022-07-03] MEDS: THIAMINE HCL 100 MG TABLET (FP) PO SCH (21:06)
[2022-07-03] MEDS: SUVOREXANT 15 MG TABLET PO PRN (21:07)
[2022-07-04] MEDS: valACYclovir HCL 500 MG TABLET (FP) PO SCH (09:31)
[2022-07-04] MEDS: IBUPROFEN 400 MG TABLET (FP) PO PRN (09:32)
[2022-07-04] MEDS: THIAMINE HCL 100 MG TABLET (FP) PO SCH (21:37)
[2022-07-04] MEDS: hydrOXYzine PAMOATE 25 MG CAPSULE (FP) PO PRN (21:37)
[2022-07-04] MEDS ORDERED: SUVOREXANT 5 MG TABLET PO PRN (22:00)
[2022-07-04] MEDS ORDERED: SUVOREXANT 15 MG TABLET PO PRN (22:00)
[2022-07-05] MEDS: IBUPROFEN 400 MG TABLET (FP) PO PRN (06:28)
[2022-07-05 06:48] VITALS: BP 112/77; PULSE 58; RESP 16; TEMP 97.1
[2022-07-05] MEDS: valACYclovir HCL 500 MG TABLET (FP) PO SCH (09:12)
== END 2022-07-05 09:33 | disposition home or self-care (01) | DRG 772 ==
LOC: YASAS 12:31 → Y3E 12:34
PROVIDERS: ADMIT Allergy & Immunology; ATTEND Allergy & Immunology
PROC: HZ42ZZZ Group Counseling for Substance Abuse Treatment, Cognitive-Behavioral (ICD-10-PCS; principal; 2022-06-08)
DX: F10.20 Alcohol dependence, uncomplicated (principal); F14.20 Cocaine dependence, uncomplicated; F19.282 Other psychoactive substance dependence with psychoactive substance-induced sleep disorder; D53.1 Other megaloblastic anemias, not elsewhere classified; G47.00 Insomnia, unspecified; K08.89 Other specified disorders of teeth and supporting structures; N48.29 Other inflammatory disorders of penis; Z59.00 Homelessness unspecified; Z56.0 Unemployment, unspecified; Z87.891 Personal history of nicotine dependence
CPT/HCPCS: 36415; 81003; 82140; 86803; 87389

== ENCOUNTER 2023-05-01 02:36 | Inpatient (IN) | payer OTHER ==
[2023-05-01 03:06] VITALS: BMI 26.9
[2023-05-01] MEDS ORDERED: METHOCARBAMOL 500 MG TABLET PO PRN (03:22)
[2023-05-01] MEDS ORDERED: BISMUTH SUBSALICYLATE 524 MG/30 ML PO PRN (03:22)
[2023-05-01] MEDS ORDERED: POLYETHYLENE GLYCOL (HEALTHYLAX) 3350 17 GM PACKET PO PRN (03:22)
[2023-05-01] MEDS ORDERED: MAGNESIUM HYDROX 2400MG/30ML ORAL SUSPENSION 30 ML CUP PO PRN (03:22)
[2023-05-01] MEDS ORDERED: ONDANSETRON *ODT* 4 MG TABLET SL PRN (03:22)
[2023-05-01] MEDS ORDERED: BENZONATATE 200 MG CAPSULE PO PRN (03:22)
[2023-05-01] MEDS ORDERED: MAG HYDROX/AL HYDROX/SIMETH 30 ML UNIT-DOSE CUP PO PRN (03:22)
[2023-05-01] MEDS ORDERED: hydrOXYzine PAMOATE 25 MG CAPSULE (FP) PO PRN (03:22)
[2023-05-01] MEDS ORDERED: ACETAMINOPHEN 325 MG TABLET (FP) PO PRN (03:22)
[2023-05-01] MEDS ORDERED: LOPERAMIDE HCL 2 MG CAPSULE PO PRN (03:22)
[2023-05-01] MEDS ORDERED: IBUPROFEN 600 MG TABLET (FP) PO PRN (03:22)
[2023-05-01] MEDS ORDERED: IBUPROFEN 400 MG TABLET (FP) PO PRN (03:22)
[2023-05-01] MEDS ORDERED: BENZOCAINE/MENTHOL (CHLORASEPTIC ) LOZENGE MM PRN (03:22)
[2023-05-01] MEDS ORDERED: DICYCLOMINE HCL 10 MG CAPSULE PO PRN (03:22)
[2023-05-01] MEDS ORDERED: guaiFENesin 600 MG TABLET.ER (FP) PO PRN (03:22)
[2023-05-01] MEDS: PRENATAL VITAMINS W/ FOLIC ACID TABLET (FP) PO SCH (10:27)
[2023-05-01] MEDS ORDERED: chlordiazePOXIDE HCL 25 MG CAPSULE PO PRN (11:03)
[2023-05-01] MEDS: chlordiazePOXIDE HCL 25 MG CAPSULE PO SCH ×3 (11:32→22:24)
[2023-05-01] MEDS: THIAMINE HCL 100 MG TABLET (FP) PO SCH (22:24)
[2023-05-01] MEDS: MELATONIN 5 MG TABLETS PO SCH (22:24)
[2023-05-02] MEDS: chlordiazePOXIDE HCL 25 MG CAPSULE PO SCH ×3 (05:57→17:21)
[2023-05-02] MEDS: PRENATAL VITAMINS W/ FOLIC ACID TABLET (FP) PO SCH (10:20)
[2023-05-02 13:16] LABS: HEMATOCRIT 38.2 % (35.4-49); HEMOGLOBIN 12.8 GM/dL (11.7-16.9); MCH 32.7 pg (25.7-33.7); MCHC 33.4 g/dl (32.0-35.9); MEAN CELL VOLUME 97.8 fl (80-96); MEAN PLT VOLUME 7.6 fl (7.5-11.1); PLATELET COUNT 275 10^3/uL (134-434); RBC 3.91 M/mm3 (4.00-5.60); RDW 13.4 % (11.9-15.9); WHITE BLOOD COUNT 5.6 K/mm3 (4.0-10.0)
[2023-05-02 13:20] LABS: POTASSIUM 4.3 mmol/L (3.5-5.1)
[2023-05-02 13:25] LABS: CALCIUM 8.8 mg/dL (8.5-10.1)
[2023-05-02 13:26] LABS: ALBUMIN 3.1 g/dl (3.4-5.0); BLOOD UREA NITROGEN 22.2 mg/dL (7-18)
[2023-05-02 13:29] LABS: CREATININE 0.7 mg/dL (0.55-1.3)
[2023-05-02 13:30] LABS: TOT PROT 6.2 g/dl (6.4-8.2)
[2023-05-02 13:31] LABS: BILIRUBIN,TOTAL 0.2 mg/dL (0.2-1)
[2023-05-02] MEDS: THIAMINE HCL 100 MG TABLET (FP) PO SCH (22:20)
[2023-05-02] MEDS: MELATONIN 5 MG TABLETS PO SCH (22:20)
[2023-05-03] MEDS ORDERED: chlordiazePOXIDE HCL 25 MG CAPSULE PO SCH (05:00)
[2023-05-03] MEDS: PRENATAL VITAMINS W/ FOLIC ACID TABLET (FP) PO SCH (10:29)
[2023-05-03] MEDS: valACYclovir HCL 500 MG TABLET (FP) PO SCH (11:21)
[2023-05-03] MEDS: THIAMINE HCL 100 MG TABLET (FP) PO SCH (22:24)
[2023-05-03] MEDS: MELATONIN 5 MG TABLETS PO SCH (22:24)
[2023-05-04] MEDS ORDERED: chlordiazePOXIDE HCL 10 MG CAPSULE PO PRN
[2023-05-04] MEDS: chlordiazePOXIDE HCL 10 MG CAPSULE PO SCH ×4 (05:20→22:44)
[2023-05-04] MEDS: valACYclovir HCL 500 MG TABLET (FP) PO SCH (10:17)
[2023-05-04] MEDS: PRENATAL VITAMINS W/ FOLIC ACID TABLET (FP) PO SCH (10:17)
[2023-05-04] MEDS: THIAMINE HCL 100 MG TABLET (FP) PO SCH (22:44)
[2023-05-04] MEDS: MELATONIN 5 MG TABLETS PO SCH (22:44)
[2023-05-05] MEDS ORDERED: chlordiazePOXIDE HCL 10 MG CAPSULE PO SCH (05:00)
[2023-05-05 09:13] VITALS: TEMP 98
[2023-05-05] MEDS: valACYclovir HCL 500 MG TABLET (FP) PO SCH (10:16)
[2023-05-05] MEDS: PRENATAL VITAMINS W/ FOLIC ACID TABLET (FP) PO SCH (10:16)
[2023-05-05 12:57] VITALS: BP 111/69; PULSE 74; RESP 19
[2023-05-06] MEDS ORDERED: chlordiazePOXIDE HCL 10 MG CAPSULE PO ONE (05:00)
== END 2023-05-05 15:16 | disposition other institution (70) | DRG 774 ==
LOC: YASAS 02:36 → Y3N 03:51
PROVIDERS: ADMIT Allergy & Immunology; ATTEND Surgery
PROC: HZ2ZZZZ Detoxification Services for Substance Abuse Treatment (ICD-10-PCS; principal; 2023-05-01)
DX: F10.230 Alcohol dependence with withdrawal, uncomplicated (principal); F14.20 Cocaine dependence, uncomplicated
CPT/HCPCS: 36415; 80053; 80307; 85027; 86780; 87635

== ENCOUNTER 2023-05-05 15:15 | Inpatient (IN) | payer OTHER ==
[2023-05-05] MEDS ORDERED: METHOCARBAMOL 500 MG TABLET PO PRN (15:44)
[2023-05-05] MEDS ORDERED: guaiFENesin 600 MG TABLET.ER (FP) PO PRN (15:44)
[2023-05-05] MEDS ORDERED: AMMONIUM LACTATE 12% LOTION 225 GM BOTTLE TP PRN (15:44)
[2023-05-05] MEDS ORDERED: COLLOIDAL OATMEAL 1 BAR EACH TP PRN (15:44)
[2023-05-05] MEDS ORDERED: NALOXONE HCL 0.4 MG/ML VIAL IVPUSH PRN (15:44)
[2023-05-05] MEDS ORDERED: MAG HYDROX/AL HYDROX/SIMETH 30 ML UNIT-DOSE CUP PO PRN (15:44)
[2023-05-05] MEDS ORDERED: NICOTINE 14 MG/24 HOURS TOPICAL PATCH TD PRN (15:44)
[2023-05-05] MEDS ORDERED: IBUPROFEN 600 MG TABLET (FP) PO PRN (15:44)
[2023-05-05] MEDS ORDERED: BENZOCAINE/MENTHOL (CHLORASEPTIC ) LOZENGE MM PRN (15:44)
[2023-05-05] MEDS ORDERED: BENZONATATE 200 MG CAPSULE PO PRN (15:44)
[2023-05-05] MEDS ORDERED: MAGNESIUM HYDROX 2400MG/30ML ORAL SUSPENSION 30 ML CUP PO PRN (15:44)
[2023-05-05] MEDS ORDERED: IBUPROFEN 400 MG TABLET (FP) PO PRN (15:44)
[2023-05-05] MEDS ORDERED: NICOTINE POLACRILEX 4 MG GUM BUC PRN (15:44)
[2023-05-05] MEDS ORDERED: ACETAMINOPHEN 325 MG TABLET (FP) PO PRN (15:44)
[2023-05-05] MEDS ORDERED: POLYETHYLENE GLYCOL (HEALTHYLAX) 3350 17 GM PACKET PO PRN (15:44)
[2023-05-05] MEDS ORDERED: hydrOXYzine PAMOATE 25 MG CAPSULE (FP) PO PRN (15:44)
[2023-05-05] MEDS ORDERED: NALOXONE HCL (KLOXXADO) 8 MG SPRAY NS PRN (15:44)
[2023-05-05] MEDS ORDERED: LOPERAMIDE HCL 2 MG CAPSULE PO PRN (15:44)
[2023-05-05] MEDS: THIAMINE HCL 100 MG TABLET (FP) PO SCH (21:11)
[2023-05-05] MEDS: MELATONIN 5 MG TABLETS PO SCH (21:11)
[2023-05-06] MEDS: PRENATAL VITAMINS W/ FOLIC ACID TABLET (FP) PO SCH (09:51)
[2023-05-06] MEDS: NALTREXONE HCL 50 MG TABLET PO SCH (09:51)
[2023-05-06] MEDS: valACYclovir HCL 500 MG TABLET (FP) PO SCH (09:52)
[2023-05-06] MEDS ORDERED: BACITRACIN 0.9 GM PACKET TP SCH (10:00)
[2023-05-06 12:28] LABS: HIV INTERPRETATION NEGATIVE (NEGATIVE)
[2023-05-06] MEDS: THIAMINE HCL 100 MG TABLET (FP) PO SCH (21:14)
[2023-05-06] MEDS: MELATONIN 5 MG TABLETS PO SCH (21:14)
[2023-05-06] MEDS: NYSTATIN/TRIAMCINOLONE TOPICAL OINTMENT 15 GM TUBE TP SCH (21:15)
[2023-05-07 07:12] VITALS: BP 105/69; PULSE 70; RESP 17; TEMP 97.3
[2023-05-07] MEDS: PRENATAL VITAMINS W/ FOLIC ACID TABLET (FP) PO SCH (08:59)
[2023-05-07] MEDS: valACYclovir HCL 500 MG TABLET (FP) PO SCH (08:59)
[2023-05-07] MEDS: NYSTATIN/TRIAMCINOLONE TOPICAL OINTMENT 15 GM TUBE TP SCH (09:00)
[2023-05-07] MEDS: NALTREXONE HCL 50 MG TABLET PO SCH (09:00)
== END 2023-05-07 09:05 | disposition left against medical advice (07) | DRG 770 ==
LOC: YASAS 15:15 → Y3W 15:17
PROVIDERS: ADMIT Allergy & Immunology; ATTEND Psychiatry & Neurology Pain Medicine
PROC: HZ42ZZZ Group Counseling for Substance Abuse Treatment, Cognitive-Behavioral (ICD-10-PCS; principal; 2023-05-05)
DX: F10.20 Alcohol dependence, uncomplicated (principal); R21 Rash and other nonspecific skin eruption
CPT/HCPCS: 36415; 82140; 86803; 87389

== ENCOUNTER 2024-05-01 22:58 | Inpatient (IN) | payer OTHER ==
[2024-05-02 00:55] VITALS: BMI 28.5
[2024-05-02] MEDS ORDERED: ACETAMINOPHEN 325 MG TABLET (FP) PO PRN (01:53)
[2024-05-02] MEDS ORDERED: ONDANSETRON *ODT* 4 MG TABLET SL PRN (01:53)
[2024-05-02] MEDS ORDERED: BISMUTH SUBSALICYLATE 524 MG/30 ML PO PRN (01:53)
[2024-05-02] MEDS ORDERED: DICYCLOMINE HCL 10 MG CAPSULE PO PRN (01:53)
[2024-05-02] MEDS ORDERED: LOPERAMIDE HCL 2 MG CAPSULE PO PRN (01:53)
[2024-05-02] MEDS ORDERED: NALOXONE (NARCAN) HCL 4 MG/0.1 ML SPRAY NS PRN (01:53)
[2024-05-02] MEDS ORDERED: BENZONATATE 200 MG CAPSULE PO PRN (01:53)
[2024-05-02] MEDS ORDERED: IBUPROFEN 400 MG TABLET (FP) PO PRN (01:53)
[2024-05-02] MEDS ORDERED: hydrOXYzine PAMOATE 25 MG CAPSULE (FP) PO PRN (01:53)
[2024-05-02] MEDS ORDERED: MAGNESIUM HYDROX 2400MG/30ML ORAL SUSPENSION 30 ML CUP PO PRN (01:53)
[2024-05-02] MEDS ORDERED: POLYETHYLENE GLYCOL (HEALTHYLAX) 3350 17 GM PACKET PO PRN (01:53)
[2024-05-02] MEDS ORDERED: MAG HYDROX/AL HYDROX/SIMETH 30 ML UNIT-DOSE CUP PO PRN (01:53)
[2024-05-02] MEDS: guaiFENesin 600 MG TABLET.ER (FP) PO PRN (02:58)
[2024-05-02] MEDS: valACYclovir HCL 500 MG TABLET (FP) PO SCH (09:47)
[2024-05-02] MEDS: PRENATAL VITAMINS W/ FOLIC ACID TABLET (FP) PO SCH (09:47)
[2024-05-02] MEDS: guaiFENesin 600 MG TABLET.ER (FP) PO SCH (09:47)
[2024-05-02] MEDS: BENZOCAINE/MENTHOL (CHLORASEPTIC ) LOZENGE MM PRN (09:56)
[2024-05-02] MEDS: MELATONIN 5 MG TABLETS PO SCH (21:49)
[2024-05-02] MEDS: METHOCARBAMOL 500 MG TABLET PO PRN (21:51)
[2024-05-02] MEDS: THIAMINE 100 MG TABLET PO SCH (21:51)
[2024-05-02] MEDS: guaiFENesin 200 MG/10 ML 10 ML UNIT-DOSE CUPS PO PRN (22:33)
[2024-05-03] MEDS ORDERED: chlordiazePOXIDE HCL 25 MG CAPSULE PO PRN (08:46)
[2024-05-03] MEDS: chlordiazePOXIDE HCL 25 MG CAPSULE PO SCH (10:06)
[2024-05-03 11:11] LABS: HEMOGLOBIN 12.1 GM/dL (11.7-16.9); MCH 32.8 pg (25.7-33.7); MCHC 33.7 g/dl (32.0-35.9); MEAN CELL VOLUME 97.3 fl (80-96); MEAN PLT VOLUME 8.1 fl (7.5-11.1); PLATELET COUNT 288 10^3/uL (134-434); RDW 14.1 % (11.9-15.9); WHITE BLOOD COUNT 5.2 K/mm3 (4.0-10.0)
[2024-05-03 11:17] LABS: POTASSIUM 3.5 mmol/L (3.5-5.1)
[2024-05-03 11:20] LABS: CALCIUM 8.4 mg/dL (8.5-10.1)
[2024-05-03 11:22] LABS: ALBUMIN 2.9 g/dl (3.4-5.0); BLOOD UREA NITROGEN 5.8 mg/dL (7-18)
[2024-05-03 11:25] LABS: BILIRUBIN,TOTAL 0.3 mg/dL (0.2-1); CREATININE 0.7 mg/dL (0.55-1.3); TOT PROT 6.5 g/dl (6.4-8.2)
[2024-05-03] MEDS: LACTULOSE 20 GM/30 ML UDC (FOR ORAL USE ONLY) PO SCH (16:06)
[2024-05-03] MEDS: IBUPROFEN 600 MG TABLET (FP) PO PRN (22:27)
[2024-05-04] MEDS: CLOTRIMAZOLE 1% CREAM TP SCH (22:32)
[2024-05-05] MEDS: chlordiazePOXIDE HCL 25 MG CAPSULE PO SCH (05:45)
[2024-05-06] MEDS ORDERED: chlordiazePOXIDE HCL 10 MG CAPSULE PO PRN
[2024-05-06] MEDS: chlordiazePOXIDE HCL 10 MG CAPSULE PO SCH (05:23)
[2024-05-06] MEDS: CLOTRIMAZOLE 1% CREAM TP SCH (13:25)
[2024-05-07] MEDS: chlordiazePOXIDE HCL 10 MG CAPSULE PO SCH (05:57)
[2024-05-07] MEDS: NALOXONE (NYS OPIOID OVERDOSE PROGRAM) 4 MG/0.1 ML SPRAY NS SCH (13:03)
[2024-05-08] MEDS: chlordiazePOXIDE HCL 10 MG CAPSULE PO ONE (05:57)
[2024-05-08 09:03] VITALS: BP 114/72; PULSE 67; RESP 19; TEMP 97.7
== END 2024-05-08 12:42 | disposition other institution (70) | DRG 774 ==
LOC: SUATTDRO 22:58 → YASAS 22:58 → Y3N 05-02 02:45
PROVIDERS: ADMIT Psychiatry & Neurology Pain Medicine; ATTEND Family Medicine Addiction Medicine
PROC: HZ2ZZZZ Detoxification Services for Substance Abuse Treatment (ICD-10-PCS; principal; 2024-05-02)
DX: F10.230 Alcohol dependence with withdrawal, uncomplicated (principal); F14.20 Cocaine dependence, uncomplicated; F17.210 Nicotine dependence, cigarettes, uncomplicated; F19.282 Other psychoactive substance dependence with psychoactive substance-induced sleep disorder; E72.20 Disorder of urea cycle metabolism, unspecified; J41.0 Simple chronic bronchitis
CPT/HCPCS: 0241U-QW; 36415; 71046-TC-FY; 80053; 80305; 80307; 82140; 85027; 86780; 87811; 93005; 93010